=== PATIENT | female | born 2000 | race Caucasian/White ===

== ENCOUNTER 2018-03-03 09:34 | Emergency (ER) | payer BC ==
[2018-03-03] MEDS ORDERED: Lidocaine 2% VISCOUS* 15 ML UDC PO ONE ×2 (10:30→10:35)
--- NOTE | 2018-03-03 10:37 | UC ---
Respiratory Complaint HPI - HPI Summary HPI Summary: Complains of a hoarse voice 3 days, with sore throat pain starting last night getting worse today. Denies SOB, fever, cough, ear pain, N/V, rash, abdominal pain, nasal discharge, facial pressure, BUCK, neck stiffness. Medical history is none - History of Current Complaint Hx Obtained From: Patient Hx Last Menstrual Period: 02/01/18 ?: No Onset/Duration: Gradual Onset Timing: Constant Severity Initially: Mild Severity Currently: Moderate Pain Intensity: 6 Pain Scale Used: 0-10 Numeric <Arcenio Burnett - Last Filed: 03/03/18 10:55> <Patricia Saucedo - Last Filed: 03/04/18 11:17> - History of Current Complaint Chief Complaint: UCGeneralIllness Stated Complaint: SORE THROAT Time Seen by Provider: 03/03/18 09:53 - Allergies/Home Medications Allergies/Adverse Reactions: Allergies Allergy/AdvReac Type Severity Reaction Status Date / Time No Known Allergies Allergy Verified 03/03/18 09:48 Home Medications: Home Medications [id number] Tablet 1 tab PO DAILY 03/03/18 [History Confirmed 03/03/18] PMH/Surg Hx/FS Hx/Imm Hx - Surgical History Surgical History: None - Social History Alcohol Use: Occasionally Substance Use Type: None Smoking Status (MU): Never Smoked Tobacco <Arcenio Burnett - Last Filed: 03/03/18 10:55> Review of Systems Constitutional: Negative Skin: Negative Eyes: Negative ENT: Sore Throat Respiratory: Negative Cardiovascular: Negative Gastrointestinal: Negative Genitourinary: Negative Motor: Negative Neurovascular: Negative Musculoskeletal: Negative Neurological: Negative Psychological: Negative Is Patient Immunocompromised?: No All Other Systems Reviewed And Are Negative: Yes <Arcenio Burnett - Last Filed: 03/03/18 10:55> Physical Exam Triage Information Reviewed: Yes Appearance: Well-Appearing Vital Signs: Initial Vital Signs Temp 98.1 F 03/03/18 09:43 Pulse 75 03/03/18 09:43 Resp 16 03/03/18 09:43 BP 101/65 03/03/18 09:43 Pulse Ox 99 03/03/18 09:43 Vital Signs Reviewed: Yes Eye Exam: Normal Eyes: Positive: Conjunctiva Clear ENT: Positive: Pharyngeal erythema, Tonsillar exudate Neck exam: Normal Respiratory Exam: Normal Cardiovascular Exam: Normal Abdominal Exam: Normal Musculoskeletal Exam: Normal Neurological Exam: Normal Psychological Exam: Normal Skin Exam: Normal <LexArcenio - Last Filed: 03/03/18 10:55> Vital Signs: Initial Vital Signs Temp 98.1 F 03/03/18 09:43 Pulse 75 03/03/18 09:43 Resp 16 03/03/18 09:43 BP 101/65 03/03/18 09:43 Pulse Ox 99 03/03/18 09:43 <Patricia Saucedo - Last Filed: 03/04/18 11:17> Diagnostic Evaluation - Laboratory O2 Sat by Pulse Oximetry: 99 <LexArcenio - Last Filed: 03/03/18 10:55> Respiratory Course/Dx - Course Course Of Treatment: Vital signs within normal limits .Strep test negative. Physical exam consistent with strep. We'll prescribe antibiotics. Discussed patient with patient's father, with patient's approval. Father wanted mono spot , patient declined due to exam coming up today. - Differential Dx/Diagnosis Provider Diagnoses: Pharyngitis <Arcenio Burnett - Last Filed: 03/03/18 10:55> Discharge - Sign-Out/Discharge Documenting (check all that apply): Discharge/Admit/Transfer - Billing Disposition and Condition Condition: STABLE Disposition: HOME <Arcenio Burnett - Last Filed: 03/03/18 10:55> - Billing Disposition and Condition Condition: STABLE Disposition: HOME <Patricia Saucedo - Last Filed: 03/04/18 11:17> - Discharge Plan Condition: Stable Disposition: HOME Prescriptions: Azithromycin 250 mg PO DAILY 5 Days #6 tablet Lidocaine 2% VISCOUS* [Xylocaine 2% Viscous*] 15 ml SWISH SPIT Q6H PRN #1 btl PRN Reason: Pain Patient Education Materials: Pharyngitis (ED) Referrals: No Primary Care Phys,NOPCP [Primary Care Provider] - Additional Instructions: Return for any new or worsening symptoms. Avoid contact sports until discussed follow-up for possible mono. Attestation Statement User Type: Provider - I was available for consult. This patient was seen by the ISABELLA. The patient was not presented to, seen by, or examined by me. -Parth <Patricia Saucedo - Last Filed: 03/04/18 11:17>
== END 2018-03-03 11:00 | disposition home or self-care (01) ==
LOC: UCEAST 09:34
DX: J02.9 Acute pharyngitis, unspecified (principal)
CPT/HCPCS: 87651; 99202; G0463

== ENCOUNTER 2018-09-25 13:08 | Emergency (ER) | payer BC ==
--- OUTSIDE RECORDS SUMMARY | 2018-09-25 13:13 | XMS REPORT | Continuity of Care Document ---
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 Payers Type Date Identification Numbers Payment Provider Subscriber Policy Number: [id number] [place]/BS [place] [employer] Magali Guerra Group Number: [id number] [address] [address] PayID: [id number] [address] [id number] Advance Directives Description No Information Available Problems Description No Information Family History Date Family Member(s) Problem(s) Comments Father Glasses Mother Glasses Social History Type Date Description Comments Sex Unknown ETOH Use Rarely consumes alcohol Tobacco Use Start: Unknown Patient has never smoked Smoking Status Reviewed: 09/24/18 Patient has never smoked Allergies, Adverse Reactions, Alerts Description No Known Drug Allergies Medications Medication Date Status Form Strength Qnty SIG Indications Ordering Provider Amoxicillin 09/24/20 Active Tablets 875mg João Smalls OD Zylet 00 Active Suspension 0.5-0.3% one drop Unknown 00 three times a day both eyes x 1 week Immunizations Description No Information Available Vital Signs Description No Information Available Results Description No Information Available Procedures Description No Information Available Encounters Type Date Location Provider Dx Diagnosis Office Visit 09/24/2018 Main Office João Smalls OD H10.89 Other conjunctivitis 1:00p Plan of Treatment 09/24/2018 - João Smalls ODH10.89 Other conjunctivitisFollow up:3-4 days f/u
[2018-09-25 13:25] VITALS: BP 109/65
--- NOTE | 2018-09-25 13:26 | UC ---
General HPI - HPI Summary HPI Summary: Pleasant 17 yo female presents with mom c/o R eye "irritation" starting Friday ( today Friday). Had fever up to 102F. Seen at [facility] on Friday, placed on amoxicillin / bactrim ds. Switched x 2 days to augmentin, no bactrim ds. Has still been having intermittent fevers up to 102. This am temperature 101F. Fevers defervesce with antipyretics (took acetaminophen this morning). Eye still is red and irritated. + swelling just under her eye. Minimally photophobic. Seen yesterday by Dr. Campos (at Dr. Bai' office), no f/b or ulceration. + sinus discomfort R side. + h/a (not described as wol, but not usual). Minimal cough. No n/v/d. No urinary sx. LMP last week, takes BCP. No rash. - History of Current Complaint Chief Complaint: UCEye Stated Complaint: EYE IRRIATION, ELEVATED TEMP Time Seen by Provider: 09/25/18 13:25 Hx Obtained From: Patient, Family/Customer Account Manager Hx Last Menstrual Period: 09/14/18 Pain Intensity: 2 - Allergy/Home Medications Allergies/Adverse Reactions: Allergies Allergy/AdvReac Type Severity Reaction Status Date / Time No Known Allergies Allergy Verified 09/25/18 13:25 Home Medications: Home Medications Acetaminophen [Tylophen] 2 mg PO ONCE PRN 09/25/18 [History Confirmed 09/25/18] Amoxicillin/Clavulanate TAB* [Augmentin TAB 875*] 1 tab PO BID 09/25/18 [ History Confirmed 09/25/18] Ibuprofen [Advil] 400 mg PO ONCE PRN 09/25/18 [History Confirmed 09/25/18] Oxymetazoline HCl [Afrin] 1 spray INH ONCE PRN 09/25/18 [History Confirmed 09/25] Xylet 1 drop OPHTHALMIC TID 09/25/18 [History] PMH/Surg Hx/FS Hx/Imm Hx Previously Healthy: Yes - Surgical History Surgical History: None - Family History Known Family History: Positive: Unknown - Social History Occupation: Student Alcohol Use: Occasionally Substance Use Type: None Smoking Status (MU): Never Smoked Tobacco Review of Systems All Other Systems Reviewed And Are Negative: Yes Constitutional: Positive: Fever, Fatigue Eyes: Positive: Other - see hpi ENT: Positive: Other - see hpi Respiratory: Positive: Other - see hpi Cardiovascular: Positive: Negative Gastrointestinal: Positive: Negative Genitourinary: Positive: Negative Motor: Positive: Negative Neurovascular: Positive: Negative Musculoskeletal: Positive: Negative Neurological: Positive: Other - see hpi Psychological: Positive: Negative Is Patient Immunocompromised?: No Physical Exam Triage Information Reviewed: Yes Appearance: Well-Nourished - sitting up, conversing easily and appropriately. NAD. Looks tired, but non-toxic appearance. Vital Signs: Initial Vital Signs Temp 97.6 F 09/25/18 13:19 Pulse 91 09/25/18 13:19 Resp 18 09/25/18 13:19 BP 109/65 09/25/18 13:19 Pulse Ox 98 09/25/18 13:19 Vital Signs Reviewed: Yes Eye Exam: Other - sclera R eye injected. Mild lid swelling. No proptosis. [place] and swollen inferior to eye over upper maxilla region. No crepitus. + blanching. Increased warm (not hot) to touch. ENT: Positive: Pharynx normal - bifurcate uvula, TM dull, Other - nasal turbinate (via direct otoscope light) both swollen, clear drainage. Neck exam: Other - neck supple, + R submand lymph node. Trachea midline. Respiratory Exam: Normal Respiratory: Positive: Chest non-tender, Lungs clear, Normal breath sounds, No respiratory distress, No accessory muscle use Cardiovascular Exam: Normal Cardiovascular: Positive: RRR, No Murmur, Brisk Capillary Refill Abdominal Exam: Normal, Other - no back tenderness reported nor appreciated Abdomen Description: Positive: Nontender Musculoskeletal Exam: Normal - gait steady. Moves all 4 ext's Neurological Exam: Normal - grossly nonfocal PERRLA EOMI. CN intact 2-12. No report of smell issues other than sinus congestion Psychological Exam: Normal - conversing in full sentances, easily and appropriately Course/Dx - Course Course Of Treatment: Spoke with Radiologist, Dr. Montano. Imaging will require contrast enhancement. Will send pt to Emerg Department. Mom will drive. I spoke with pt's dad who is an ENT surgeon, per pt and mom request, via telephone. Consider brain / orbital / sinus imaging. Questions as posed answered to the best of my ability. 14:10 Spoke with SUKI Islas. (ED) - Diagnoses Provider Diagnosis: Febrile illness, Eye abnormality Discharge - Sign-Out/Discharge Documenting (check all that apply): Patient Departure All imaging exams completed and their final reports reviewed: No Studies - Discharge Plan Condition: Stable Disposition: HOME-RECOMMEND TO ED Patient Education Materials: Fever in Adults (ED) Referrals: No Primary Care Phys,NOPCP [Primary Care Provider] - - Billing Disposition and Condition Condition: STABLE Disposition: Home-Recommend to ED
[2018-09-25] MEDS ORDERED: Fluorescein Sodium TOPICAL* 1 MG TEST STRIP OPHTHALMIC ONE (13:48)
[2018-09-25] MEDS ORDERED: Tetracaine 0.5% OPTH.SOL 4 ML* 1 DROP BTL RIGHT EYE ONE (13:49)
== END 2018-09-25 14:32 | disposition home health service (06) ==
LOC: UCEAST 13:08
DX: R50.9 Fever, unspecified (principal); H57.89 Other specified disorders of eye and adnexa
CPT/HCPCS: 99212; A9270-GY; G0463

== ENCOUNTER 2018-09-25 14:58 | Inpatient (IN) | payer BC ==
--- NOTE | 2018-09-25 15:37 | ED ---
Throat Pain/Nasal Congestion - HPI Summary HPI Summary: This patient is a 17 year old F presenting to [facility] with a chief complaint of pink-eye since 09/21/2018. The patient rates the pain 8/10 in severity. Patient reports fever, congestion, back-sided neck pain, and BUCK (all starting 09/22/2018 ). She had painful movement around her eye a couple days ago that has since improved. She was dx with periorbital cellulitis at [facility] and prescribed Amoxicillin and Bactrim. However, her father instructed her not to take those yesterday and gave her Augmentin. Patient also saw Dr. Carrasco at [facility]. - History of Current Complaint Chief Complaint: EDEyeProblem Time Seen by Provider: 09/25/18 15:23 Hx Obtained From: Patient Onset/Duration: Sudden Onset, Lasting Days - Since 09/21/2018, Still Present Associated Signs And Symptoms: Positive: Sinus Discomfort - Congestion - Allergies/Home Medications Allergies/Adverse Reactions: Allergies Allergy/AdvReac Type Severity Reaction Status Date / Time No Known Allergies Allergy Verified 09/25/18 13:25 Home Medications: Home Medications Loteprednol/Tobra 0.3/0.5%(NF) [Zylet 0.3/0.5% (NF)] 1 drop RIGHT EYE TID [History Confirmed 09/25/18] Norethindrone-E.estradiol-Iron [Blisovi Fe 11/08 1-20 mg-Mcg] 1 tab PO DAILY 05/06 [History Confirmed 09/25/18] PMH/Surg Hx/FS Hx/Imm Hx Endocrine/Hematology History: Denies: Hx Diabetes Respiratory History: Reports: Hx Pneumonia - Immunization History Date of Influenza Vaccine: 2017 Immunizations Up to Date: Yes Infectious Disease History: No Infectious Disease History: Denies: Traveled Outside the [place] in Last 30 Days - Family History Known Family History: Positive: Cardiac Disease, Other - Cancer - Social History Alcohol Use: Occasionally Substance Use Type: Reports: None Smoking Status (MU): Never Smoked Tobacco Review of Systems Positive: Fever Positive: Other - Right-sided pink eye. Positive: Sore Throat, Other - Congestion, back-sided neck pain. She had painful movement around her eye a couple days ago that has since improved. Positive: Headache All Other Systems Reviewed And Are Negative: Yes Physical Exam - Summary Physical Exam Summary: VITAL SIGNS: Reviewed. GENERAL: Patient is a well-developed and nourished FEMALE who is lying comfortable in the stretcher. Patient is not in any acute respiratory distress. There are no meningeal signs. HEAD AND FACE: No signs of trauma. No ecchymosis, hematomas or skull depressions. No sinus tenderness. EYES: PERRLA, EOMI x 2, No nystagmus. Right-sided pink eye. EARS: Hearing grossly intact. Ear canals and tympanic membranes are within normal limits. MOUTH: Pharyngeal erythema. White pustules in back of her throat and tonsils. NECK: Supple, trachea is midline, no adenopathy, no JVD, no carotid bruit, no c- spine tenderness, neck with full ROM. CHEST: Symmetric, no tenderness at palpation LUNGS: Clear to auscultation bilaterally. No wheezing or crackles. CVS: Regular rate and rhythm, S1 and S2 present, no murmurs or gallops appreciated. ABDOMEN: Soft, non-tender. No signs of distention. No rebound no guarding, and no masses palpated. Bowel sounds are normal. EXTREMITIES: FROM in all major joints, no edema, no cyanosis or clubbing. NEURO: Alert and oriented x 3. No acute neurological deficits. Speech is normal and follows commands. SKIN: Dry and warm Triage Information Reviewed: Yes Vital Signs On Initial Exam: Initial Vitals Temp Pulse Resp BP Pulse Ox 97.5 F 82 18 105/63 98 09/25/18 15:00 09/25/18 15:00 09/25/18 15:00 09/25/18 15:00 09/25/18 15:00 Vital Signs Reviewed: Yes Diagnostics - Vital Signs Vital Signs Temp Pulse Resp BP Pulse Ox 09/25/18 15:00 97.5 F 82 18 105/63 98 - Laboratory Result Diagrams: 09/25/18 17:02 09/25/18 17:02 Lab Statement: Any lab studies that have been ordered have been reviewed, and results considered in the medical decision making process. - Radiology Chest X-Ray Radiology Interpretation Completed By: ED Physician Summary of Radiographic Findings: 18:40. Negative for acute processes. Pending official report. - CT Maxillofacial CT CT Interpretation Completed By: Radiologist Summary of CT Findings: 19:14. 1. Mild superficial soft tissue edema in the medial aspect of the right orbit. extending inferiorly into the nasal soft tissues which may represent cellulitis. in the appropriate clinical setting. No abscess. No evidence of postseptal. cellulitis. 2. Mild nasopharyngeal mucosal edema.. No peritonsillar abscess. 3. Mucosal sinus disease. ED Physician has reviewed this imaging report. EENT Course/Dx - Course Assessment/Plan: This patient is a 17 year old F presenting to [facility] with a chief complaint of pink-eye since 09/21/2018. The patient rates the pain 8/10 in severity. Patient reports fever, congestion, back-sided neck pain, and BUCK ( all starting 09/22/2018). She had painful movement around her eye a couple days ago that has since improved. She was dx with periorbital cellulitis at [facility] and prescribed Amoxicillin and Bactrim. However, her father instructed her not to take those yesterday and gave her Augmentin. Patient also saw Dr. Carrasco at [facility]. In my physical exam the patient doesnt seem to have any meningeal signs. The patient doesnt have any stiffness or neck pain, maybe slight pain in the right side of the neck, and she does not have any photophobia. She does have right conjunctivitis. Blood work without any significant abnormality except for attending increase in WBCs of 11.4, no bands , CRP of 535, beta-hCG is negative. Island screen is negative and rapid strep is negative. Chest x-ray impression: Negative for an acute cardiopulmonary disease. Maxillofacial CT impression: Mild superficial soft tissue edema in the medial aspect of the right orbit extending inferiorly into the nasal soft tissue which may represent cellulitis. No abscess. No evidence of post-septal cellulitis. Mild loss of range of cosleep anemia. No periorbital abscess. Mucosal sinus disease. The patient was given already Rocephin, IV fluids and Tylenol or ibuprofen. At this time I reexamined the patient and she continues to have no meningeal signs. At this time I discussed my physical exam and findings with Dr. Sinclair from the hospital services for accepted the patient for admission. The patient is hemodynamically stable alert and oriented 3. - Diagnoses Provider Diagnoses: Periorbital cellulitis - Provider Notifications Discussed Care Of Patient With: Edith Sinclair - Hospitalist Time Discussed With Above Provider: 19:37 Instructed by Provider To: Admit As Inpatient Discharge - Sign-Out/Discharge Documenting (check all that apply): Patient Departure - Admit to Edith Sinclair MD - Discharge Plan Condition: Stable Disposition: ADMITTED TO [facility] Patient Education Materials: Periorbital Cellulitis in Adults (ED) - Billing Disposition and Condition Condition: STABLE Disposition: Admitted to [place] [facility] - Attestation Statements Document Initiated by Ninaibe: Yes Documenting Scribe: Alexander Valencia Provider For Whom Ninaibprecious is Documenting (Include Credential): Francis Soto MD Scribe Attestation: Alexander Vee, scribed for Francis Soto MD on 09/25/18 at 2103. Scribe Documentation Reviewed: Yes Provider Attestation: The documentation as recorded by the Alexander ortiz accurately reflects the service I personally performed and the decisions made by , Francis Soto MD Status of Scribe Document: Viewed
[2018-09-25] MEDS ORDERED: NS 0.9% 1000 ML* 1,000 ML IV ONE (15:40)
[2018-09-25] MEDS ORDERED: Acetaminophen TAB* 325 MG PO ONE (15:49)
[2018-09-25 17:11] LABS: ABS Basophils 0 10^3/ul (0-0.2); ABS Eosinophils 0 10^3/ul (0-0.6); ABS Lymphocytes 1.3 10^3/ul (1.0-4.8); ABS Neutrophils 9.1 10^3/ul (1.5-7.7); ABS Nucleated RBC 0 10^3/ul; Eosinophil % 0.2 %; Hematocrit 39 % (35-47); Mean Corpuscular HGB Conc 33 g/dl (31-36); Mean Corpuscular Hemoglobin 31 pg (27-31); Mean Corpuscular Volume 93 fL (80-97); Mean Platelet Volume 8.6 fL (7.4-10.4); Nucleated Red Blood Cells % 0; Platelet Count 258 10^3/ul (150-450); Red Blood Count 4.21 10^6/ul (4.00-5.40); Red Cell Distribution Width 12 % (10.5-15); White Blood Count 11.4 10^3/ul (3.5-10.8)
[2018-09-25 17:28] LABS: EGFR Non-African American 75.8 (>60)
[2018-09-25] MEDS ORDERED: cefTRIAXone(*) 1 GM in NS 0.9% 50 ML* 50 ML IVPB ONE (17:55)
[2018-09-25] MEDS ORDERED: Iohexol 300* (CONTRAST) 10 ML SDV IV ONE (18:05)
[2018-09-25 18:26] LABS: Urine Appearance Turbid; Urine Blood Negative (Negative); Urine Color Amber; Urine Ketones Trace (Negative); Urine Protein 1+(30 mg/dL) (Negative); Urine Red Blood Cell Absent (Absent); Urine Specific Gravity 1.029 (1.010-1.030); Urine Urobilinogen Negative (Negative); Urine White Blood Cell 2+(11-20/hpf) (Absent)
[2018-09-25] MEDS ORDERED: Ibuprofen TAB* 800 MG PO ONE (18:37)
[2018-09-25] MEDS ORDERED: PROCHLORPERAZINE INJ 5 MG/ML 2 ML VIAL IV PRN (20:34)
[2018-09-25] MEDS ORDERED: Acetaminophen TAB* 325 MG PO PRN (20:34)
[2018-09-25] MEDS ORDERED: Clindamycin 300 MG IVPREMIX(* 300 MG/50 ML SDV IVPB ONE (20:35)
--- NOTE | 2018-09-25 22:03 | HP ---
CC: Dr. Simran Urbina, [facility] HISTORY AND PHYSICAL: DATE OF ADMISSION: 09/25/18 TIME OF EVALUATION: 8:20 p.m. CHIEF COMPLAINT: "My right eye hurts." HISTORY OF PRESENT ILLNESS: Ms. Guerra is a 17-year-old lady with no significant past medical history that presented to the emergency room with complaints of right eye pain, edema, and erythema. She states she was in her usual state of health until 09/21/18 when she woke up with right eye irrita tion, discharge. She went to [facility] where she was diagnosed with pink eye and prescri bed an antibiotic eye drop. She states the next day her eye was worse and she contacted her father, who is a head and neck surgeon. He arranged to have an rotary shear cutter colleague to [facility] with he r and he prescribed an eye drop with steroids. The patient states that the next day, she woke up fee ling poorly with malaise, body aches, fever, nasal congestion, sore throat, and she noticed that her right eye had some periorbital edema and erythema. She continued to use her eye drops and to take Tyl enol and ibuprofen for her symptoms, but as they were not improving, she came to the emergency room f or further evaluation. The patient was diagnosed with periorbital cellulitis at [facility] and was prescribed Amoxicilli n and Bactrim. However, her father instructed her to not take those and instead to take Augmentin. She had been started on Augmentin the day before, but also feels that the medication was not working. She also had fever measured at 102.3 in the emergency room associated with headache, but no nausea or vomiting. She states that earlier in the week, she had some photophobia on her right eye only and this has also improved. She denies cough, shortness of breath, chest pain, palpitations, or diarrhea. She did have some sick contacts as a colleague was diagnosed with sinus infection. PAST MEDICAL HISTORY: None. MEDICATIONS: 1. Acetaminophen 2 tablets p.o. q.6 hours p.r.n. pain or fever. 2. Augmentin 875 mg 1 tablet p.o. b.i.d. 3. Ibuprofen 400 mg p.o. once as needed for pain. 4. Zylet 0.3/0.5% one drop to right eye t.i.d. 5. Norethindrone estradiol iron 1/20 one tablet p.o. daily. 6. Afrin 1 spray to the nares p.r.n. nasal congestion. ALLERGIES: No known drug allergies. FAMILY HISTORY: Positive for cardiac disease and cancer. SOCIAL HISTORY: She denies history of drugs or tobacco use. She states occasionally she will have a little bit of wine. REVIEW OF SYSTEMS: A 14-point review of systems was performed and all the pertinent negative and pos itive findings are in the HPI. PHYSICAL EXAMINATION GENERAL: The patient is a pleasant young lady, sitting up in the ED stretcher, in no acute distress. VITAL SIGNS: Temperature 101.3, heart rate is 70, respiratory rate is 18, oxygen saturation is 98% o n room air, and blood pressure is 124/57. HEENT: Pupils are equal and reactive to light. Extraocular motion intact and not painful. She has conjunctival erythema on the right with watery discharge. There is mild periorbital edema with mild erythema. There is mild pain on palpation. The left eye shows no abnormalities. NECK: There is no palpable adenopathy. CVS: Normal S1, S2. Regular rate and rhythm. CHEST: Breath sounds bilaterally with no added sounds. ABDOMEN: Soft and nontender. Bowel sounds present. EXTREMITIES: No edema. NEUROLOGIC: She is alert and oriented x3, able to move all 4 extremities. Power is symmetric bilate rally. There is no nuchal rigidity. LABORATORY AND IMAGING DATA: The patient had a CBC that shows a WBC of 11.4, hemoglobin of 13, sally tocrit 39, platelets of 258 with 79% neutrophils. Chemistry: Sodium 135, potassium 3.9, chloride of 101, bicarb of 25, BUN of 11, creatinine of 0.85, glucose of 96, lactic acid 1.1, and calcium 9.3. L FTs are normal. CRP is 135. HCG is less than 0.6. Urinalysis showed trace ketones, 2+ LE, 2+ wbc's . Squamous epithelial cells are present. Smith screen and group A strep rapid test were negative. Maxillofacial CT showed mild superficial soft tissue edema in the medial aspect of the right orbit ex tending inferiorly into the nasal soft tissues, which may represent cellulitis in the appropriate cli nical setting. No abscess. No evidence of postseptal cellulitis. Mild nasopharyngeal mucosal edema . No peritonsillar abscess and mucosal sinus disease. ASSESSMENT AND PLAN: Ms. Guerra is a 17-year-old lady with no significant past medical history who pr esented to the emergency room with a 5-day history of right eye erythema, discharge with progressive periorbital edema and erythema. Found to have periorbital cellulitis. 1. Periorbital cellulitis. The patient will be admitted as observation to the medical floor. I bel ieve her process probably started with a viral infection, with viral conjunctivitis, and rhinosinusit is and appears to have progressed to a bacterial infection at this time. Her CT showed no postseptal cellulitis. She will be admitted to the medical floor and she will be treated with clindamycin and ceftriaxone. Took over the most common infecting organisms (staphylococcus aureus, streptococcus pne umoniae, other streptococci and anaerobes). She will receive symptomatic treatment with acetaminophe n, ibuprofen, and we will continue her eyedrop that she was using before. At this time, she is febri le, but does not meet systemic inflammatory response syndrome criteria. She does not have any mening eal signs so I believe an LP is not warranted at this time. We will continue to monitor her closely. 2. DVT prophylaxis. The patient has a score of 1 on the DVT Prophylaxis Risk Assessment Guide. I a m going to recommend ambulation and SCDs while in bed. 3. Code status is full. TIME SPENT: Approximately 45 minutes were spent with patient interview, medical records interview, p hysical examination to complete the admission. More than half this time was spent [id number] with the patient in co-ordination of care. [id number]/[facility] #: [id number]
[2018-09-26] MEDS: LOTEPREDNOL RIGHT EYE SCH ×4 (00:13→21:17)
[2018-09-26] MEDS: DOXYLAMINE PO SCH ×3 (00:13→21:15)
[2018-09-26] MEDS: DEXTROMETHORPHAN PO SCH ×3 (00:13→21:15)
[2018-09-26] MEDS: ACETAMINOPHEN PO SCH ×3 (00:13→21:15)
[2018-09-26] MEDS: [UNRECOGNIZED DRUG - OTHER] RIGHT EYE SCH ×4 (00:13→21:17)
[2018-09-26] MEDS: Polyethylene Glycol 3350* 17 GM PACKET PO SCH ×2 (01:55→08:41)
[2018-09-26] MEDS ORDERED: Oxymetazoline 0.05% NASAL SPR* 15 ML BTL BOTH NARES PRN (05:32)
[2018-09-26] MEDS: Ibuprofen TAB* 600 MG PO PRN ×2 (05:54→15:35)
[2018-09-26] MEDS: Clindamycin 300 MG IVPREMIX(* 300 MG/50 ML SDV IV SCH ×3 (05:54→21:15)
[2018-09-26 06:47] LABS: ABS Basophils 0 10^3/ul (0-0.2); ABS Eosinophils 0 10^3/ul (0-0.6); ABS Lymphocytes 1.2 10^3/ul (1.0-4.8); ABS Monocytes 1.1 10^3/ul (0-0.8); ABS Nucleated RBC 0 10^3/ul; Eosinophil % 0.3 %; Hematocrit 33 % (35-47); Hemoglobin 11.4 g/dl (12.0-16.0); Lymphocyte % 13.3 %; Mean Corpuscular HGB Conc 34 g/dl (31-36); Mean Corpuscular Hemoglobin 32 pg (27-31); Mean Corpuscular Volume 92 fL (80-97); Mean Platelet Volume 8.5 fL (7.4-10.4); Nucleated Red Blood Cells % 0; Platelet Count 206 10^3/ul (150-450); Red Blood Count 3.61 10^6/ul (4.00-5.40); Red Cell Distribution Width 12 % (10.5-15); White Blood Count 9.3 10^3/ul (3.5-10.8)
[2018-09-26 07:03] LABS: EGFR Non-African American 104.3 (>60)
--- NOTE | 2018-09-26 08:33 | PN ---
Subjective Date of Service: 09/26/18 Interval History: Magali and her mother are frustrated about the lack of sleep and the fact that it took so long to obtain pharmacy ID of her own personal nyquil, zylet and decongestant. She does not think there is any improvement in her eye drainage or swelling. Objective Active Medications: Acetaminophen (Tylenol Tab*) 650 mg PO Q6H PRN PRN Reason: pain/fever Clindamycin HCl/Dextrose (Cleocin 300 Mg Ivpemix(*)) 300 mg in 50 mls @ 200 mls /hr IV Q8H [facility] Last Admin: 09/26/18 05:54 Dose: 200 mls/hr Ceftriaxone Sodium 1 gm/ (Sodium Chloride) 50 mls @ 200 mls/hr IVPB 2000 [facility] Ibuprofen (Motrin Tab*) 600 mg PO Q6H PRN PRN Reason: PAIN Last Admin: 09/26/18 05:54 Dose: 600 mg Loteprednol Etabonate/Tobramycin (Zylet 0.3/0.5% (Nf)) 1 drop RIGHT EYE TID [facility] Last Admin: 09/26/18 00:13 Dose: 1 drop Pto: (Norethindrone- E.Estradiol-Iron [ Blisovi Fe 1-20 Tablet] 1 Tab) 1 tab PO DAILY [facility] Pto:Nyquil Cold And (Flu Liquicaps) 2 tab PO BEDTIME [facility] Last Admin: 09/26/18 00:15 Dose: 2 tab Oxymetazoline HCl (Afrin 0.05% Nasal [place]*) 1 spray BOTH NARES BID PRN PRN Reason: NASAL CONGESTION Last Admin: 09/26/18 06:01 Dose: 1 spray Polyethylene Glycol/Electrolytes (Miralax*) 17 gm PO DAILY [facility] Last Admin: 09/26/18 01:55 Dose: Not Given Prochlorperazine Edisylate (Compazine Inj*) 5 mg IV Q6H PRN PRN Reason: NAUSEA/VOMITING Vital Signs - 8 hr 09/26/18 03:21 Temperature 98.7 F Pulse Rate 67 Respiratory 17 Rate Blood Pressure 112/49 (mmHg) O2 Sat by Pulse 100 Oximetry Oxygen Devices in Use Now: None Appearance: Young female lying in bed, NAD Eyes: No Scleral Icterus, - - R eye with mild conjunctival injection, moderate drainage from the eye, slight erythema and swelling surrounding the eye Ears/Nose/Mouth/Throat: Mucous Membranes Moist Respiratory: Symmetrical Chest Expansion and Respiratory Effort, Clear to Auscultation Cardiovascular: NL Sounds; No Murmurs; No JVD, RRR, No Edema Abdominal: NL Sounds; No Tenderness; No Distention Extremities: No Clubbing, Cyanosis Skin: No Rash or Ulcers Neurological: Alert and Oriented x 3 Result Diagrams: 09/26/18 06:26 09/26/18 06:26 Microbiology and Other Data: Microbiology 09/25/18 16:43 Group A Streptococcus Rapid Screen - Final Throat Specimen received for Rapid Strep A Molecular testing Assess/Plan/Problems-Billing Ms Guerra is a 17 yo F who has no significant PMHx who presented to the ER with c /o R eye/soft tissue redness and swelling that has progressively worsened over 5 days and was admitted with pre-septal cellulitis. - Patient Problems (1) Preseptal cellulitis of right eye Current Visit: Yes Status: Acute Code(s): L03.213 - PERIORBITAL CELLULITIS SNOMED Code(s): 118153835 Comment: Pt and her mom report no improvement in the swelling and redness of the eye and soft tissues. She remains on ceftriaxone and clindamycin. Message has been sent to Dr. Lowe to call me back. Will also reach out to ophthamology to discuss her case. (2) DVT prophylaxis Current Visit: Yes Status: Acute Code(s): MHO9129 - SNOMED Code(s): 580794925 Comment: ambulation (3) Full code status Current Visit: Yes Status: Acute Code(s): Z78.9 - OTHER SPECIFIED HEALTH STATUS SNOMED Code(s): 015623524
[2018-09-26] MEDS: NORETHINDRONE E ESTRADIOL IRON PO SCH (08:41)
[2018-09-26] MEDS ORDERED: cefTAZidime* 1 GM in NS 0.9% 50 ML* 50 ML IVPB ONE (15:00)
[2018-09-26] MEDS ORDERED: cefTRIAXone(*) 1 GM in NS 0.9% 50 ML* 50 ML IVPB SCH ×2 (20:00→23:00)
--- NOTE | 2018-09-27 00:30 | CONS ---
CONSULTATION REPORT: DATE OF CONSULT: 09/26/18 REQUESTING PROVIDER: Dr. Sanderson. CONSULTING SERVICE: Infectious Disease. REASON FOR CONSULTATION: Question right eye infection. IMPRESSION: Six days right eye pain, redness, report of decreased visual acuity on ophthalmologic exam, slight periorbital edema with fever, malaise, frontal congestion, sore throat. Common diagnosis would be viral conjunctivitis ; however, the report of decreased visual acuity would argue against that as well as the degree of pain she has been having. The redness has decreased over the last few days, that may just be from the topical steroid use as well. Endophthalmitis seems unlikely. Uveitis is a consideration including reactive process due to distant infections i.e. GC or chlamydia. Headache which comes on with fever as well as nuchal rigidity, but when she is not febrile, there is nothing to suggest a meningeal process. RECOMMENDATION: She will stay on ceftriaxone and clindamycin here to cover possibility of bacteria infection as well as topical corticosteroids. Because of the change in visual acuity, I do think she should have ophthalmologic evaluation tomorrow to see if that is changing and if it cannot be done here, then I recommend she travel to a location where it is available. This may all just be a slowly resolving severe conjunctivitis in the setting of upper respiratory infection; but given the concerns for her vision, I do think ophthalmologic support would be important. Need to add GC, Chlamydia for RNA from pharynx and urine as well as an RPR. 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 She later the next morning developed fever, chills, and sweats. These have been present since then. She was seen in an urgent care setting and had a prescription for oral antibiotic and a topical steroid. Her father arranged a FaceTime evaluation with an kitchen bath designer, who prescribed a different topical steroid. She was seen at [facility], prescribed Bactrim and amoxicillin and then her father had her start Augmentin. She has been on antibiotics since Friday. She had a little bit of redness and swelling around the eye by her report. She showed me images for each day of last 4 to 5 days and there is nothing was red, but there was slight edema. She did have consistent conjunctival injection on those photos. It is improved a little bit over the last few days, particularly yesterday and today according to her mother. She continues to have fever to 102 degrees with chills, sweats, decreased appetite. When she is febrile, she had a headache and neck stiffness that pretty much goes away when she is not febrile. Tylenol helps the fever. She has not had anything like this in the past. She thinks her vision feels a little bit blurred in that eye still. Of note, when she saw Ophthalmology, they told she had decreased visual acuity earlier in the week. Today, she continues to have right eye pain, slight gritty sensation, and a deeper eye pain, she believes. She has no joint pain or skin rashes. She had a new partner about a month ago. No dysuria. She does have a sore throat for the duration of these symptoms as well. PAST MEDICAL HISTORY: None. ALLERGIES: No known drug allergies. MEDICATIONS: 1. Tylenol. 2. Clindamycin 300 mg every 8 hours. 3. Ceftriaxone 1 g a day. 4. Oxymetazoline both nares twice daily. 5. Loteprednol and tobramycin eyedrops to right eye. 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 Family lives [facility]. No recent travel. One new partner about a month ago, had sex with men. FAMILY HISTORY: No recurrent infections. REVIEW OF SYSTEMS: All negative. A 14-point review of symptoms as noted above in the history of present illness. PHYSICAL EXAM: Vital Signs: Temperature 37, T-max 39.5, heart rate 80, respiratory rate 20, blood pressure 126/56, oxygen saturation 100% on room air. In general, she is awake and not in distress. Neurologic: She is oriented x3. Follows all commands. Answers questions appropriately and moves all extremities. Cranial nerves II through XII are intact. HEENT: There is right conjunctival injection, which is diffuse, worse under the lids. There is slight periorbital edema without tenderness or crepitus. Extraocular motions are intact. Pupils are equal, round, reactive to light. Oropharynx, there is no erythema or lesion. Neck is supple without mass. Lymph Nodes: There is no cervical, supraclavicular, inguinal, axillary or epitrochlear lymphadenopathy. Heart: Regular rate and rhythm without murmurs, rubs, or gallops. Lungs: Clear to auscultation bilaterally. Abdomen: Soft, nontender, nondistended. Bowel sounds present. Skin: There is no rash or splinter hemorrhage. Musculoskeletal: There is no spine tenderness to palpation or joint synovitis. LABORATORY DATA: White blood cell count 9, hemoglobin 11, platelets 206. Creatinine is 0.7. CRP 135, HCG 0. PCR negative. Urinalysis showed leukocyte esterase, white cells, and protein. CT showed no retroorbital involvement or abscess. There was sinus mucosal disease in the frontal sinus. Please see impression and recommendations outlined above, which I have discussed with Dr. Sanderson. I have discussed this with the patient and her mother as well. Thanks for asking me to see Ms. Guerra in consultation. [id number]/[facility] #: [id number] MTDDiana
[2018-09-27] MEDS: Ibuprofen TAB* 600 MG PO PRN (03:05)
[2018-09-27] MEDS: Clindamycin 300 MG IVPREMIX(* 300 MG/50 ML SDV IV SCH (05:26)
[2018-09-27] MEDS: LOTEPREDNOL RIGHT EYE SCH (09:21)
[2018-09-27] MEDS: [UNRECOGNIZED DRUG - OTHER] RIGHT EYE SCH (09:21)
[2018-09-27] MEDS: Polyethylene Glycol 3350* 17 GM PACKET PO SCH (09:21)
[2018-09-27] MEDS: NORETHINDRONE E ESTRADIOL IRON PO SCH (09:21)
[2018-09-27 09:25] VITALS: BP 102/58
--- NOTE | 2018-09-28 04:30 | DS ---
CC: Dr. Simran Urbina, [facility]; Dr. Bai, associate financial representative * DISCHARGE SUMMARY: DATE OF ADMISSION: 09/25/18 DATE OF DISCHARGE: 09/27/18 PRIMARY CARE PHYSICIAN: Dr. Simran Urbina, [facility]. PRINCIPAL DIAGNOSIS: Conjunctivitis with possible secondary preseptal cellulitis. MEDICATIONS ON DISCHARGE: Unchanged with the exception of discontinuing the Afrin spray are as follows: 1. Tylenol 2 tabs every 6 hours as needed. 2. Augmentin 875 mg p.o. b.i.d. 3. Ibuprofen 400 mg q.6 hours as needed for pain and fever. 4. Zylet eye drops, 1 drop to the right eye t.i.d. 5. Norethindrone/estradiol 11/08, 1 tab p.o. daily. HOSPITAL COURSE: This is a 17-year-old female [facility] study with an unremarkable past medical history, who woke up on the 09/21/18 with right eye irritation and drainage. She was initially prescribed an antibiotic eye drops. Her symptoms worsened with URI symptoms. She contacted her father, who is from [facility], who is an ENT physician and an associate financial representative, who FaceTimed with her and started her on steroid eye drops. She did not have any significant improvement and she has some surrounding swelling and redness of the right eye. She went into [facility] and she was prescribed amoxicillin and Bactrim, but she did not take that and said she was started on Augmentin prescribed by her father that was started on the evening of 09/23/18. Prior to admission, she was seen by an dump truck driver off highway, who did a slit light exam and did not find any concerning findings. The patient came in to the emergency room on the evening of 09/25/18 for eye pain. The patient had imaging done including a maxillofacial CT that read mild superficial soft tissue edema in the medial aspect of the right orbit extending inferior into the nasal soft tissue, which may represent cellulitis in the appropriate clinical setting. No abscess. No evidence of postseptal cellulitis. Mild nasopharyngeal mucosa edema. No peritonsillar abscess or mucosal sinus disease. Chest x-ray was negative. Her labs showed a mild white count of 11.4 on admission, which resolved and normalized. Her CRP was elevated at 135. Her rapid mono spot and group A strep were negative. On admission, the patient was started on clindamycin and ceftriaxone. There was concern about some decrease in her visual acuity and infectious disease was consulted and came in on 09/26/18 and they recommended an ophthalmology evaluation and continue antibiotics for now. There was concern initially for uveitis. On the day of discharge, the patient is clinically improving. Her exam shows mild conjunctival injection more prominent in the right eye. There is mild injection in the left eye. She has some minimal periorbital edema and minimal erythema. She states no pain with extraocular eye movement. She did have a low-grade temp at 3 a.m. on 09/27/18 at 100.3, although has been afebrile this morning, tolerating p.o. Significant nasal congestions but no longer has sore throat. No cough, no shortness of breath. I spoke with Dr. Bai, who recommended followup in his office tomorrow morning for another ophthalmologic exam. I discussed with the mother, who is at the bedside and the father who is on the phone that this is likely a start of conjunctivitis with possible secondary preseptal cellulitis versus sinusitis. DISCHARGE PLAN: To continue her on Augmentin. She is not considered failed p.o. outpatient that she only took 24 hours of Augmentin. Follow up with Ophthalmology tomorrow morning on 09/28/18 for another thorough eye examination and to continue for 7 days of oral antibiotics in total. DISCHARGE INSTRUCTIONS: Continue supportive care, Tylenol and ibuprofen and to follow up with [facility] if her symptoms persist or worsen, or back to the emergency room. Parents and the patient are agreeable to plan. The patient will be discharged this morning under the care of her mother. TIME SPENT: Greater than 45 minutes spent doing the discharge summary, more than half the time was spent in direct patient contact. [id number]/[facility] #: [id number] NIRAV
[2018-09-30 10:29] LABS: N. gonorrhoeae Source THROAT
== END 2018-09-27 12:25 | disposition home or self-care (01) | DRG 383 ==
LOC: ED 14:58 → MED 20:25 → OBSVTOIN 20:25
PROVIDERS: ADMIT Internal Medicine; ATTEND Pediatrics
DX: L03.213 Periorbital cellulitis (principal); H20.9 Unspecified iridocyclitis; H10.9 Unspecified conjunctivitis; L53.8 Other specified erythematous conditions; L08.9 Local infection of the skin and subcutaneous tissue, unspecified; J32.9 Chronic sinusitis, unspecified; J02.9 Acute pharyngitis, unspecified; D64.9 Anemia, unspecified; M54.2 Cervicalgia; Z87.01 Personal history of pneumonia (recurrent); Z82.49 Family history of ischemic heart disease and other diseases of the circulatory system; Z80.9 Family history of malignant neoplasm, unspecified; Z72.89 Other problems related to lifestyle; Z79.52 Long term (current) use of systemic steroids
CPT/HCPCS: 36415; 70487; 71046; 80048; 80053; 81003; 81015; 83605; 84702; 85025; 86140; 86308; 86592; 87040; 87070; 87086; 87491; 87591; 87651; 99284; A9270-GY; J0696; J0713; Q9967